=== PATIENT | female | born 1970 | race Caucasian/White ===

== ENCOUNTER 2020-04-11 14:01 | Emergency (ER) | payer BC ==
[~2020-04-11] VITALS: Ht 180.3 cm; Wt 121.1 kg
[2020-04-11 14:15] VITALS: BP 128/69
--- NOTE | 2020-04-11 14:15 | NUR ---
ED Nurse Note: Pt wheeled in from car c/o pain s/p fall 4 weeks ago. Pt reports dizziness and fell on her head, back, and legs . Pt c/o increased pain since fall. Pt is seen by Dr. Brito for pain mgmt. Respirations even and unlabored on room air. Vitals stable as documented. A+Ox4, speaking in complete sentences.
--- NOTE | 2020-04-11 14:37 | Emergency Room Report ---
History of Present Illness General Chief Complaint: Multiple Trauma/Fall Source: Patient Present Illness HPI 49-year-old female history of multiple surgeries to the back, on chronic pain management presents with lower back pain generalized lower extremity weakness has been acutely worsening over the past 4 weeks, severity is moderate, constant no aggravating or alleviating factors no fevers no chills, patient had a fall 4 weeks ago now with bilateral lower extremity weakness, no urinary retention no perianal numbness, no bowel bladder retention/incontinence. Patient presents for eval. Allergies: Coded Allergies: LEVOTHYROXINE SODIUM (Verified Allergy, Unknown, 04/11/20) MORPHINE (Verified Allergy, Unknown, 04/11/20) COVID-19 Screening Contact w/high risk pt: No Experienced COVID-19 symptoms?: No COVID-19 Testing performed QUARTER BACKER: Yes COVID-19 Screening: Negative COVID-19 COVID-19 Testing Source: 2 weeks ago Patient History Last Menstrual Period: 2 weeks ago Now: No Nursing Documentation-[facility] Past Medical History: No History, Except For Hx Hypertension: Yes Review of Systems All Other Systems: negative except mentioned in HPI Physical Exam Vital Signs Date Time Temp Pulse Resp B/P (MAP) Pulse Ox O2 Delivery O2 Flow Rate FiO2 04/11/20 14:10 98.1 64 19 121/65 (83) 95 Room Air Sp02 EP Interpretation: reviewed, normal General Appearance: well appearing, no apparent distress, alert Head: normocephalic, atraumatic Eyes: bilateral eye PERRL, bilateral eye EOMI ENT: uvula midline, moist mucus membranes Neck: supple, thyroid normal, supple/symm/no masses Respiratory: lungs clear, no respiratory distress, no retraction, no accessory muscle use Cardiovascular #1: normal peripheral pulses, regular rate, rhythm, no edema, no gallop, no murmur Gastrointestinal: non tender, soft, no guarding, no rebound Musculoskeletal: other - Back: No midline tenderness tenderness to palpation right lower lateral back lumbar area, abrasion noted, lower extremities hard to test, patient able to lift against gravity bilaterally patient overall generalized weakness Neurologic: alert, oriented x3, other - 5 out of 5 strength lower extremities, patient with difficulty ambulating, attempted to walk patient, needed to hold physician for support, antalgic gait Psychiatric: mood/affect normal Skin: no rash, warm/dry Medical Decision Making Diagnostic Impression: Primary Impression: Fall Qualified Codes: W19.XXXA - Unspecified fall, initial encounter Additional Impressions: Concussion Qualified Codes: S06.0X9A - Concussion with loss of consciousness of unspecified duration, initial encounter Unstable gait ER Course 49-year-old female presents with chronic lower back pain, now with difficulty walking concern for neuropathic injury, since her fall 4 weeks ago, difficult to ambulate patient patient has gotten unsteady gait, patient with about a 5 strength lower extremities patient is able to ambulate with difficulty, attempted to conduct an MRI with and without contrast per her physician Dr. Brito, however MRI gantry could not accommodate patient, her large hernia hit the top of the machine and it could not process images. Patient with severe canal stenosis Spinal canal stenosis L2-L3, which may be contributing to her gait instability over 4 weeks. Patient without urinary retention/incontinence, no perianal numbness. Plan to transfer patient for MRI to evaluate for nerve impingement leading to weakness bilaterally. Spoke with transfer center at [facility], they are currently at capacity, unable to accept patient Patient was able to ambulate with assistance, spoke with Dr. Healy from [facility], no capacity, pt inappropriate for transfer. Joint decision-making made with patient, patient feels comfortable going home to reassess her symptoms, patient will follow up with neurosurgery as an outpatient, no evidence of cauda equina at this time, patient with a subacute process no emergent surgery needed, no fracture dislocation on CT Disposition home with return precautions Laboratory Tests Test 04/11/20 14:50 White Blood Count 8.1 K/UL (4.8-10.8) Red Blood Count 4.11 M/UL (4.20-5.40) L Hemoglobin 9.4 G/DL (12.0-16.0) L Hematocrit 30.0 % (37.0-47.0) L Mean Corpuscular Volume 73 FL (80-99) L Mean Corpuscular Hemoglobin 22.8 PG (27.0-31.0) L Mean Corpuscular Hemoglobin Concent 31.2 G/DL (32.0-36.0) L Red Cell Distribution Width 19.8 % (11.6-14.8) H Platelet Count 218 K/UL (150-450) Mean Platelet Volume 5.8 FL (6.5-10.1) L Neutrophils (%) (Auto) 59.9 % (45.0-75.0) Lymphocytes (%) (Auto) 30.6 % (20.0-45.0) Monocytes (%) (Auto) 5.5 % (1.0-10.0) Eosinophils (%) (Auto) 2.8 % (0.0-3.0) Basophils (%) (Auto) 1.2 % (0.0-2.0) Prothrombin Time 10.1 SEC (9.30-11.50) Prothrombin Time INR 0.9 (0.9-1.1) Activated Partial Thromboplast Time 21 SEC (23-33) L Urine Color Pale yellow Urine Appearance Clear Urine pH 5 (4.5-8.0) Urine Specific [place] 1.015 (1.005-1.035) Urine Protein Negative (NEGATIVE) Urine Glucose (UA) Negative (NEGATIVE) Urine Ketones Negative (NEGATIVE) Urine Blood 4+ (NEGATIVE) H Urine Nitrite Negative (NEGATIVE) Urine Bilirubin Negative (NEGATIVE) Urine Urobilinogen Normal MG/DL (0.0-1.0) Urine Leukocyte Esterase Negative (NEGATIVE) Urine RBC 0-2 /HPF (0 - 2) Urine WBC 0-2 /HPF (0 - 2) Urine Squamous Epithelial Cells Occasional /LPF Urine Bacteria Occasional /HPF (NONE) Urine HCG, Qualitative Negative (NEGATIVE) Sodium Level 139 MMOL/L (136-145) Potassium Level 4.3 MMOL/L (3.5-5.1) Chloride Level 102 MMOL/L (98-107) Carbon Dioxide Level 30 MMOL/L (21-32) Anion Gap 7 mmol/L (5-15) Blood Urea Nitrogen 23 mg/dL (7-18) H Creatinine 1.1 MG/DL (0.55-1.30) Estimated Glomerular Filtration Rate 52.6 mL/min (>60) Glucose Level 113 MG/DL (74-106) H Calcium Level 10.7 MG/DL (8.5-10.1) H Total Bilirubin 0.2 MG/DL (0.2-1.0) Aspartate Amino Transferase (AST) 14 U/L (15-37) L Alanine Aminotransferase (ALT) 16 U/L (12-78) Alkaline Phosphatase 104 U/L (46-116) Total Protein 7.3 G/DL (6.4-8.2) Albumin 3.9 G/DL (3.4-5.0) Globulin 3.4 g/dL Albumin/Globulin Ratio 1.1 (1.0-2.7) Human Chorionic Gonadotropin, Quant 2 mIU/mL (1-6) Microbiology Date/Time Source Procedure Growth Status 04/11/20 14:50 Nasopharynx SARS-CoV-2 RdRp Gene Assay - Final Complete CT/MRI/US Diagnostic Results CT/MRI/US Diagnostic Results : Impression Procedure: CT L Spine no Contrast EXAM: CT Lumbar Spine Without Intravenous Contrast CLINICAL HISTORY: PAIN TECHNIQUE: Axial computed tomography images of the lumbar spine without intravenous contrast. CTDI is 20.8 mGy and DLP is 818.9 mGy-cm. One or more of the following dose reduction techniques were used: automated exposure control, adjustment of the mA and/or kV according to patient size, use of iterative reconstruction technique. COMPARISON: No relevant prior studies available. FINDINGS: Vertebrae: No acute fracture. Status post instrumented fusion at L4-5 with posterior decompression and a disc spacer in place. Moderate to severe degenerative changes from T12 L1-L3 4. Spinal canal stenosis most pronounced at L2-3 where it is moderate to severe. Multilevel mild and moderate foraminal stenosis. Soft tissues: Unremarkable. IMPRESSION: 1. No acute fracture. 2. Degenerative spondylosis as described. Moderate to severe spinal canal stenosis at L2-3. Dictated By: Hector Stauffer M.D. Electronically Signed By:Hector Stauffer M.D. Signed Date/Time04/11/20 1813 CC: Andrew Jimenez MD Procedure: CT L Spine no Contrast EXAM: CT Lumbar Spine Without Intravenous Contrast CLINICAL HISTORY: PAIN TECHNIQUE: Axial computed tomography images of the lumbar spine without intravenous contrast. CTDI is 20.8 mGy and DLP is 818.9 mGy-cm. One or more of the following dose reduction techniques were used: automated exposure control, adjustment of the mA and/or kV according to patient size, use of iterative reconstruction technique. COMPARISON: No relevant prior studies available. FINDINGS: Vertebrae: No acute fracture. Status post instrumented fusion at L4-5 with posterior decompression and a disc spacer in place. Moderate to severe degenerative changes from T12 L1-L3 4. Spinal canal stenosis most pronounced at L2-3 where it is moderate to severe. Multilevel mild and moderate foraminal stenosis. Soft tissues: Unremarkable. IMPRESSION: 1. No acute fracture. 2. Degenerative spondylosis as described. Moderate to severe spinal canal stenosis at L2-3. Dictated By: Hector Stauffer M.D. Electronically Signed By:Hector Stauffer M.D. Signed Date/Time04/11/20 1158 CC: Andrew Jimenez MD Last Vital Signs Date Time Temp Pulse Resp B/P (MAP) Pulse Ox O2 Delivery O2 Flow Rate FiO2 04/11/20 14:10 98.1 64 19 121/65 (83) 95 Room Air Disposition: HOME, SELF-CARE Condition: Stable Referrals: [facility]. [facility] Patient Instructions: Fall Prevention in the Home, [id number], Spinal Stenosis, [id number] Additional Instructions: The patient was provided with discharge instructions, notified to follow-up with a primary care doctor and or specialist in the next 24-48 hours, and to return to the ED if they have worsening of their symptoms. Please note that this report is being documented using [employer] technology. This can lead to erroneous entry secondary to incorrect interpretation by the dictating instrument. Andrew Jimenez MD Apr 11, 2020 14:37
[2020-04-11] MEDS ORDERED: Hydromorphone 0.5mg/0.5ml inj IVP ONE ×2 (14:45→21:00)
[2020-04-11] MEDS ORDERED: Gadavist 7.5mMol/7.5ml vial IV PRN (15:00)
--- NOTE | 2020-04-11 15:17 | Diagnostic Imaging Report ---
Indications: Head trauma, pain Technique: Spiral acquisitions obtained through the brain. Angled axial and coronal 5 x 5 mm slices were reconstructed. Total dose length product 1098 mGycm. CTDI vol(s) 53 mGy. Dose reduction achieved using automated exposure control Comparison: None. Findings: No acute intracranial hemorrhage or edema. No mass effect nor midline shift. Normal murray-white differentiation. Normal size ventricles and extra axial CSF spaces. Visualized orbits and sinuses are unremarkable. The calvarium is intact. The mastoids are clear. Impression: Negative. No acute intracranial bleed or mass effect The CT scanner at [facility] is accredited by the [employer] and the scans are performed using protocols designed to limit radiation exposure to as low as reasonably achievable to attain images of sufficient resolution adequate for diagnostic evaluation.
[2020-04-11 15:25] LABS: APPEARANCE,URINE CLEAR; BILIRUBIN, URINE NEGATIVE (NEGATIVE); COLOR,URINE PALE YELLOW; GLUCOSE, URINE (UA) NEGATIVE (NEGATIVE); KETONES,URINE NEGATIVE (NEGATIVE); LEUKOCYTE ESTERASE ,URINE NEGATIVE (NEGATIVE); NITRITE,URINE NEGATIVE (NEGATIVE); PH,URINE 5 (4.5-8.0); PROTEIN,URINE NEGATIVE (NEGATIVE); UROBILINOGEN,URINE NORMAL MG/DL (0.0-1.0)
[2020-04-11 15:29] LABS: BASOPHILS % (AUTO) 1.2 % (0.0-2.0); EOSINOPHILS % (AUTO) 2.8 % (0.0-3.0); HEMOGLOBIN 9.4 G/DL (12.0-16.0); LYMPHOCYTES % (AUTO) 30.6 % (20.0-45.0); MEAN CORPUSCULAR VOLUME 73 FL (80-99); MONOCYTES % (AUTO) 5.5 % (1.0-10.0); NEUTROPHILS % (AUTO) 59.9 % (45.0-75.0); PLATELET COUNT 218 K/UL (150-450); RED BLOOD COUNT 4.11 M/UL (4.20-5.40); RED CELL DISTRIBUTION WIDTH 19.8 % (11.6-14.8); WHITE BLOOD COUNT 8.1 K/UL (4.8-10.8)
[2020-04-11 15:42] LABS: INR 0.9 (0.9-1.1)
[2020-04-11 15:57] LABS: CALCIUM 10.7 MG/DL (8.5-10.1); CREATININE 1.1 MG/DL (0.55-1.30); POTASSIUM 4.3 MMOL/L (3.5-5.1)
[2020-04-11 16:02] LABS: ALBUMIN 3.9 G/DL (3.4-5.0); ALBUMIN/GLOBULIN RATIO 1.1 (1.0-2.7); BILIRUBIN,TOTAL 0.2 MG/DL (0.2-1.0)
[2020-04-11] MEDS ORDERED: HYDROmorphone 1mg/ml Carpuject IVP ONE ×3 (16:15→18:30)
--- NOTE | 2020-04-11 17:32 | NUR ---
ED Nurse Note: pt back from radiology. No acute distress noted
--- NOTE | 2020-04-11 17:47 | Diagnostic Imaging Report ---
EXAM: CT Lumbar Spine Without Intravenous Contrast CLINICAL HISTORY: PAIN TECHNIQUE: Axial computed tomography images of the lumbar spine without intravenous contrast. CTDI is 20.8 mGy and DLP is 818.9 mGy-cm. One or more of the following dose reduction techniques were used: automated exposure control, adjustment of the mA and/or kV according to patient size, use of iterative reconstruction technique. COMPARISON: No relevant prior studies available. FINDINGS: Vertebrae: No acute fracture. Status post instrumented fusion at L4-5 with posterior decompression and a disc spacer in place. Moderate to severe degenerative changes from T12 L1-L3 4. Spinal canal stenosis most pronounced at L2-3 where it is moderate to severe. Multilevel mild and moderate foraminal stenosis. Soft tissues: Unremarkable. IMPRESSION: 1. No acute fracture. 2. Degenerative spondylosis as described. Moderate to severe spinal canal stenosis at L2-3.
[2020-04-11 19:10] VITALS: BP 130/87
--- NOTE | 2020-04-11 19:10 | NUR ---
ED Nurse Note: received report from Itzel. vss, nad, aaox4, on court monitor
--- NOTE | 2020-04-11 19:10 | NUR ---
HAND-OFF: Report given to GAY Aceves. Pt in stable condition; plan of care endorsed.
[2020-04-11] MEDS ORDERED: LORazepam Inj 2mg/ml 1ml IV ONE (19:15)
[2020-04-11 21:19] VITALS: BP 124/69
[2020-04-11 21:30] VITALS: BP 131/75
--- NOTE | 2020-04-11 21:30 | NUR ---
ER DISCHARGE NOTE: Patient is cleared to be discharged per ERMD, pt is aox4, on room air, with stable vital signs. pt was given dc instructions, pt was able to verbalize understanding, pt id band and iv site removed without complications. pt left accompanied by via wheelchair
== END 2020-04-11 21:30 | disposition home or self-care (01) ==
LOC: EMR 15:28
DX: S06.0X9A Concussion with loss of consciousness of unspecified duration, initial encounter (principal); K46.9 Unspecified abdominal hernia without obstruction or gangrene; M48.061 Spinal stenosis, lumbar region without neurogenic claudication; W01.0XXA Fall on same level from slipping, tripping and stumbling without subsequent striking against object, initial encounter; Y93.9 Activity, unspecified; Y92.9 Unspecified place or not applicable; Z88.5 Allergy status to narcotic agent; Z88.8 Allergy status to other drugs, medicaments and biological substances
CPT/HCPCS: 36415; 70450; 72131; 80053; 81003; 81025; 84702; 85025; 85610; 85730; 96374; 96375; 96376; 99284; J1170; J2405; U0002